=== PATIENT | male | born 1980 | race Asian ===

== ENCOUNTER 2018-11-27 07:17 | Emergency (ER) | payer MEDICAID ==
[~2018-11-27] VITALS: Ht 170.2 cm; Wt 73.0 kg
[2018-11-27] MEDS ORDERED: BACITRACIN ZINC OINT UDPKT TOP ONE (07:45)
[2018-11-27] MEDS ORDERED: TETANUS, DIPHTHERIA, PERTUSSIS VAC/PF 0.5ML (>7YR OLD) IM ONE (07:45)
[2018-11-27] MEDS ORDERED: HYDROCODONE/ACETAMINOPHEN 5/325MG TABLET PO ONE (07:45)
[2018-11-27] MEDS ORDERED: BACITRACIN 15GM TUBE TOP ONE (08:05)
[2018-11-27 10:08] VITALS: BP 122/78
== END 2018-11-27 10:09 | disposition home or self-care (01) ==
LOC: ER 07:17
DX: S90.01XA Contusion of right ankle, initial encounter (principal); R41.0 Disorientation, unspecified; M54.5 Low back pain; S60.811A Abrasion of right wrist, initial encounter; R03.0 Elevated blood-pressure reading, without diagnosis of hypertension; V49.49XA Driver injured in collision with other motor vehicles in traffic accident, initial encounter; Y93.89 Activity, other specified; Y92.410 Unspecified street and highway as the place of occurrence of the external cause; Z23 Encounter for immunization
CPT/HCPCS: 73610; 90471; 90715; 99284